=== PATIENT | female | born 1985 | race Two or more races ===

== ENCOUNTER 2019-06-12 17:01 | Emergency (ER) | payer OTHER ==
[~2019-06-12] VITALS: Ht 172.7 cm; Wt 70.3 kg
--- NOTE | 2019-06-12 17:19 | NUR ---
BIB FOR NAUSEA AND VOMITING, LOWER BACK PAIN SINCE LAST NIGHT. , ALSO C/O L BREAST TENDERNESS. PT STS "3 MONTHS ." TO ER BED 16, HOOKED TO MONITOR AND POX, CHANGED T0 HOSP GOWN, WARM BLANKET PROVIDED, PATIENT AOx4 , BREATHING EVEN AND UNLABORED, NAD NOTED, AWAITING MD CASILLAS.
--- NOTE | 2019-06-12 17:27 | NUR ---
CHAPERONED WHILE DR VENEGAS DOING ASSESSMENT TO PATIENT. AT BEDSIDE.
[2019-06-12] MEDS ORDERED: IV NS 0.9% 1,000 ML BAG IV ONE (18:00)
[2019-06-12] MEDS ORDERED: ONDANSETRON HCL/PF - ER 4 MG/2 ML VIAL IV ONE (18:00)
[2019-06-12] MEDS ORDERED: ONDANSETRON HCL/PF 4 MG/2 ML VIAL ONE (18:06)
[2019-06-12 18:13] LABS: BILIRUBIN,URINE Negative (NEGATIVE); BLOOD, URINE Negative Ery/uL (NEGATIVE); COLOR,URINE Yellow (YELLOW); KETONES,URINE Negative (NEGATIVE); LEUKOCYTE ESTERASE ,URINE Trace (NEGATIVE); NITRITE, URINE Negative (NEGATIVE); PROTEIN,URINE >=300 mg/dl (NEGATIVE); UGLUCOSE 500 MG/DL mg/dL (NEGATIVE); UROBILINOGEN,URINE 0.2 EU/dL (0.2)
[2019-06-12 18:19] LABS: APPEARANCE,URINE SLIGHTLY CLOUDY (CLEAR)
--- NOTE | 2019-06-12 18:25 | NUR ---
CHIPPER MACHINE OPERATOR AT BEDSIDE WITH FEMALE GLACING MACHINE TENDER.
[2019-06-12 18:45] LABS: BASOPHILS # (AUTO) 0.1 /CMM (0.0-0.2); EOSINOPHILS % (AUTO) 2.5 % (0.0-6.0); HEMATOCRIT 41 % (33-45); HEMOGLOBIN 13.5 g/dL (11.5-14.8); LYMPHOCYTES % (AUTO) 28.4 % (20.0-44.0); MEAN CORPUSCULAR HGB CONC 34 g/dl (31.0-36.0); MEAN CORPUSCULAR VOLUME 93 fL (82-100); MONOCYTES # (AUTO) 0.7 /CMM (0.1-1.30); MONOCYTES % (AUTO) 6.6 % (2.0-12.0); NEUTROPHILS # (AUTO) 6.4 /CMM (1.8-8.9); NEUTROPHILS % (AUTO) 61.5 % (43.0-81.0); PLATELET COUNT (AUTO) 290 /CMM (150-450); RED BLOOD CELL COUNT(AUTO) 4.35 MIL/uL (4.0-5.2); WHITE BLOOD COUNT (AUTO) 10.5 K/uL (4.3-11.0)
[2019-06-12 18:55] LABS: BACTERIA,URINE Many /HPF (None Seen); RBC,URINE 0-2 /HPF (0-2); SQUAMOUS EPITHELIAL CELL,UR Many /HPF (None Seen)
[2019-06-12 19:05] LABS: CALCIUM, SERUM 9.5 mg/dL (8.5-10.1); CREATININE 1.2 mg/dL (0.6-1.3); POTASSIUM 4.2 mmol/L (3.5-5.1)
--- NOTE | 2019-06-12 19:30 | NUR ---
ENDORSED TO LISSET MARK.
[2019-06-12 19:33] LABS: ALBUMIN 3.2 g/dL (3.4-5.0); BILIRUBIN,TOTAL 0.1 mg/dL (0.2-1.0); TOTAL PROTEIN, SERUM 7.9 g/dL (6.4-8.2)
[2019-06-12] MEDS ORDERED: INSULIN ASPART/LISPRO 100 UNIT/ML CARTRIDGE SQ STA (20:09)
[2019-06-12] MEDS ORDERED: INSULIN REGULAR, HUMAN 100 UNIT/ML 10 ML VIAL ONE (20:13)
--- NOTE | 2019-06-12 20:26 | NUR ---
Patient discharged to home in stable condition. Written and verbal after care instructions given. Patient verbalizes understanding of instruction.IV removed. Catheter intact and site benign. Pressure and 4x4 applied to site. No bleeding noted.Pt ambulatory with a steady gait
[2019-06-12 20:27] VITALS: BP 118/79
== END 2019-06-12 20:27 | disposition home or self-care (01) ==
LOC: ER 17:01
DX: O21.9 Vomiting of pregnancy, unspecified (principal); O92.29 Other disorders of breast associated with pregnancy and the puerperium; O99.810 Abnormal glucose complicating pregnancy; E11.65 Type 2 diabetes mellitus with hyperglycemia; E78.5 Hyperlipidemia, unspecified; E78.00 Pure hypercholesterolemia, unspecified; Z88.0 Allergy status to penicillin; Z3A.01 Less than 8 weeks gestation of pregnancy
CPT/HCPCS: 36415; 76642; 76856; 80048; 80076; 81001; 82962; 83690; 84702; 85025; 87086; 96361; 96372; 96374; 99285; J1815; J2405 ×2; 81000-TC

== ENCOUNTER 2019-06-24 16:50 | Emergency (ER) | payer MEDICAID, OTHER ==
[~2019-06-24] VITALS: Ht 172.7 cm; Wt 78.0 kg
--- NOTE | 2019-06-24 17:25 | NUR ---
PT BIB HER WITH A C/O VAGINAL BLEEDING. PT IS A0. PT IS AA7O X4. RESP ARE EVEN AN UNLABORED. PT IS ALSO C/O LOWER BACK PAIN THAT RADIATES DOWN BLE. PT IS AMBULATORY WITH A STEADY GAIT.
--- NOTE | 2019-06-24 17:35 | NUR ---
PT AMBULATED TO THE BATHROOM WITH A STEADY GAIT. URINE SAMPLE WAS OBTAINED AND SENT TO LAB.
--- NOTE | 2019-06-24 17:36 | NUR ---
US TRACEY TECH IS AT THE BEDSIDE.
[2019-06-24 17:37] LABS: BASOPHILS # (AUTO) 0.1 /CMM (0.0-0.2); BASOPHILS % (AUTO) 0.8 % (0.0-2.0); EOSINOPHILS % (AUTO) 2.4 % (0.0-6.0); HEMATOCRIT 37 % (33-45); HEMOGLOBIN 12.5 g/dL (11.5-14.8); LYMPHOCYTES # (AUTO) 3.2 /CMM (0.8-4.8); LYMPHOCYTES % (AUTO) 29.9 % (20.0-44.0); MEAN CORPUSCULAR HGB CONC 34 g/dl (31.0-36.0); MEAN CORPUSCULAR VOLUME 92 fL (82-100); MONOCYTES # (AUTO) 0.6 /CMM (0.1-1.30); MONOCYTES % (AUTO) 5.6 % (2.0-12.0); NEUTROPHILS # (AUTO) 6.5 /CMM (1.8-8.9); NEUTROPHILS % (AUTO) 61.3 % (43.0-81.0); PLATELET COUNT (AUTO) 283 /CMM (150-450); RED BLOOD CELL COUNT(AUTO) 3.97 MIL/uL (4.0-5.2); WHITE BLOOD COUNT (AUTO) 10.7 K/uL (4.3-11.0)
--- NOTE | 2019-06-24 17:48 | NUR ---
Female fish and wildlife technician accompanied female patient for TRANS VAG US.
[2019-06-24 17:56] LABS: APPEARANCE,URINE Clear (CLEAR); BILIRUBIN,URINE Negative (NEGATIVE); BLOOD, URINE Negative Ery/uL (NEGATIVE); COLOR,URINE Yellow (YELLOW); KETONES,URINE Negative (NEGATIVE); LEUKOCYTE ESTERASE ,URINE Negative (NEGATIVE); NITRITE, URINE Negative (NEGATIVE); PH,URINE 6.5 (5.0-8.0); PROTEIN,URINE >=300 mg/dl (NEGATIVE); UGLUCOSE 100 MG/DL mg/dL (NEGATIVE); UROBILINOGEN,URINE 0.2 EU/dL (0.2)
[2019-06-24 18:13] LABS: CALCIUM, SERUM 8.9 mg/dL (8.5-10.1); CREATININE 1.2 mg/dL (0.6-1.3); POTASSIUM 3.6 mmol/L (3.5-5.1)
[2019-06-24 19:18] VITALS: BP 117/85
--- NOTE | 2019-06-24 19:18 | NUR ---
Patient discharged to home in stable condition. Written and verbal after care instructions given. Patient verbalizes understanding of instruction. PT AMBULATED OUT WITH A STEADY GAIT. COPY OF ALL LABS AND US FINDINGS GIVEN TO PT AND HER .
== END 2019-06-24 19:18 | disposition home or self-care (01) ==
LOC: ER 16:54
DX: O20.0 Threatened abortion (principal); E11.65 Type 2 diabetes mellitus with hyperglycemia; E78.00 Pure hypercholesterolemia, unspecified; Z88.0 Allergy status to penicillin; Z3A.08 8 weeks gestation of pregnancy
CPT/HCPCS: 36415; 76856-TC; 80048-TC; 81000-TC; 84702-TC; 85025-TC; 87086-TC

== ENCOUNTER 2019-07-02 09:40 | Emergency (ER) | payer MEDICAID ==
[~2019-07-02] VITALS: Ht 172.7 cm; Wt 77.1 kg
[2019-07-02 10:06] VITALS: BP 136/82
--- NOTE | 2019-07-02 10:22 | NUR ---
Patient discharged to home in stable condition. Written and verbal after care instructions given. Patient verbalizes understanding of instruction.
== END 2019-07-02 10:22 | disposition home or self-care (01) ==
LOC: ER 09:40
DX: O24.414 Gestational diabetes mellitus in pregnancy, insulin controlled (principal); E78.00 Pure hypercholesterolemia, unspecified; Z3A.12 12 weeks gestation of pregnancy; Z88.0 Allergy status to penicillin